=== PATIENT | male | born 1980 | race Caucasian/White ===

== ENCOUNTER 2023-06-10 12:38 | Emergency (ER) | payer BC ==
[~2023-06-10] VITALS: Ht 188 cm; Wt 81.8 kg
[2023-06-10 12:42] VITALS: TEMP 98.3
[2023-06-10] MEDS ORDERED: Ketorolac 30 MG/ML VIAL IM ONE (13:00)
[2023-06-10] MEDS ORDERED: FLEXERIL 1010 MG/TAB PO (14:28)
[2023-06-10 14:41] VITALS: BP 100/77; PULSE 69
[2023-06-10] MEDS ORDERED: Morphine 10 MG/ML VIAL IM ONE (15:45)
== END 2023-06-10 14:48 | disposition home or self-care (01) ==
LOC: COL.ER 12:38
DX: M54.50 Low back pain, unspecified (principal); X50.0XXA Overexertion from strenuous movement or load, initial encounter
CPT/HCPCS: J1885; J2270; J2360